=== PATIENT | female | born 1985 | race Caucasian/White ===

== ENCOUNTER 2018-07-29 01:07 | Emergency (ER) | payer MEDICAID, OTHER ==
[~2018-07-29] VITALS: Ht 165.1 cm; Wt 59.0 kg
--- NOTE | 2018-07-29 01:20 | NUR ---
Pt. BIB [facility] for acute alcohol intoxication, EMS called by friend who reports that pt. drinks like this often, identifies self but is babbling incoherently and difficult to understand - does not answer questions appropriately,
[2018-07-29] MEDS ORDERED: IV NORMAL SALINE 1000 ML BAG IV ONE ×2 (01:30→05:15)
--- NOTE | 2018-07-29 02:00 | NUR ---
Pt. states she needs to use restroom but has unstable gait - given bedside commode - urine specimen collected and sent to lab - urine clear
--- NOTE | 2018-07-29 02:19 | NUR ---
Phleb. tech. at bedside for blood draw - specimens collected and sent to lab,
[2018-07-29 02:20] LABS: *URINE HCG, QUAL NEGATIVE (NEGATIVE)
[2018-07-29 02:25] LABS: BASOPHILS # (AUTO) 0.1 K/uL (0.0-8.0); BASOPHILS % (AUTO) 1.4 % (0.0-2.0); EOSINOPHILS # (AUTO) 0.1 K/uL (0.0-0.7); EOSINOPHILS % (AUTO) 1.4 % (0.0-7.0); HEMATOCRIT 41.1 % (31.2-41.9); HEMOGLOBIN 13.8 g/dL (10.9-14.3); LYMPHOCYTES # (AUTO) 3.5 K/uL (20.0-40.0); LYMPHOCYTES % (AUTO) 49.8 % (20.5-51.5); MEAN CORPUSCULAR HEMOGLOBIN 33.5 uug (24.7-32.8); MEAN CORPUSCULAR HGB CONC 34 g/dL (32.3-35.6); MEAN CORPUSCULAR VOLUME 99.6 fL (75.5-95.3); MONOCYTES # (AUTO) 0.5 K/uL (2.0-10.0); MONOCYTES % (AUTO) 7.4 % (0.0-11.0); NEUTROPHILS # (AUTO) 2.8 K/uL (1.8-8.9); PLATELET COUNT (AUTO) 305 K/uL (179-408); RED BLOOD CELL COUNT(AUTO) 4.13 MIL/uL (3.63-4.92)
[2018-07-29] MEDS ORDERED: [UNRECOGNIZED DRUG - REMARK] (02:33)
--- NOTE | 2018-07-29 02:33 | NUR ---
Bf at bedside, reports pt. has been trying to detox from alcohol on her own, reports pt. has a hx of epilepsy but does not know the name of the medication she takes,
[2018-07-29 02:39] LABS: BILIRUBIN,DIRECT 0.1 mg/dL (0.0-0.2); BILIRUBIN,TOTAL 0.3 mg/dL (0.2-1.0); CREATININE 0.7 mg/dL (0.6-1.3); POTASSIUM 3.2 mmol/L (3.5-5.1); TOTAL PROTEIN, SERUM 7.6 g/dL (6.4-8.2)
--- NOTE | 2018-07-29 02:50 | NUR ---
Bedside rails padded for pt. safety, pt. used bed cardenas to void,
[2018-07-29 03:00] LABS: *AMPHETAMINE, URINE NEGATIVE (NEGATIVE); *BARBITURATE, URINE NEGATIVE (NEGATIVE); *CANNABINOID, URINE NEGATIVE (NEGATIVE); *COCCAINE, URINE NEGATIVE (NEGATIVE); *OPIATE, URINE NEGATIVE (NEGATIVE); *PHENCYCLIDINE SCREEN,URINE NEGATIVE (NEGATIVE)
[2018-07-29] MEDS ORDERED: THIAMINE HCL 200 MG/2 ML VIAL IV ONE (03:30)
[2018-07-29] MEDS ORDERED: THIAMINE HCL 200 MG/2 ML VIAL ONE (03:41)
[2018-07-29] MEDS ORDERED: LORAZEPAM 2 MG/1 ML VIAL ONE ×2 (03:41→05:09)
[2018-07-29] MEDS ORDERED: LORAZEPAM 2 MG/1 ML VIAL IV ONE ×2 (03:45→05:15)
--- NOTE | 2018-07-29 03:55 | NUR ---
Pt. attempting to pull out IV lines/VS monitoring lines - Called [facility] to request sitter for pt. safety - none available at this time, called security to request assistance watching the pt. - security dispatched,
[2018-07-29] MEDS ORDERED: POTASSIUM CHLORIDE 50 ML ONE ×2 (05:26→05:38)
[2018-07-29] MEDS: POTASSIUM CHLORIDE 50 ML IV SCH ×2 (05:33→06:28)
--- NOTE | 2018-07-29 05:34 | NUR ---
1st bag of KCl started and infusing
--- NOTE | 2018-07-29 06:28 | NUR ---
2nd bag KCl started and infusing
--- NOTE | 2018-07-29 06:42 | NUR ---
Pt. recieving fluids, placed in trendelenberg position, Dr. Lima notified of VS
--- NOTE | 2018-07-29 06:58 | NUR ---
Pt. much more coherent and asking for her bf Aden who said he would be back later this morning,
--- NOTE | 2018-07-29 07:10 | NUR ---
Recieved Pt in bed, w/ both eyes closed.NAD noted.
--- NOTE | 2018-07-29 07:26 | NUR ---
Report given to jaimee Lucas, all care endorsed,
--- NOTE | 2018-07-29 07:40 | NUR ---
2nd bag of KCL infusion ended at this time.
--- NOTE | 2018-07-29 07:51 | NUR ---
Pt brought back from CT scan.
--- NOTE | 2018-07-29 09:07 | NUR ---
Patient is resting comfortably in bed with eyes closed, NAD noted.
--- NOTE | 2018-07-29 09:59 | NUR ---
Pt ate breakfast w/ good appetite. Pt walked to the bathroom w/ steady gait.
--- NOTE | 2018-07-29 11:20 | NUR ---
Pt's best friend/boyfriend at the bedside, Dr Lima spoke to Pt and pt's friend.
--- NOTE | 2018-07-29 11:26 | NUR ---
Patient discharged to home in stable conditon. Written and verbal after care instructions given. Patient and pt's BF verbalize understanding of instructions. Pt left ER w/ steady gait and accompained by BF.
[2018-07-29 11:29] VITALS: BP 100/58
== END 2018-07-29 11:30 | disposition home or self-care (01) ==
LOC: ER 01:11 → EDBD 01:11 → ER 11:30
DX: F10.129 Alcohol abuse with intoxication, unspecified (principal); R00.0 Tachycardia, unspecified; E87.6 Hypokalemia; Y90.8 Blood alcohol level of 240 mg/100 ml or more
CPT/HCPCS: 36415; 70450; 72125; 80048; 80076; 80307; 84702; 84703; 85025; 93005; 96365; 96366; 96375; 96376; 99284; G0480; J2060 ×2; J3411; J3480 ×2; A4663; J7030

== ENCOUNTER 2019-01-15 17:16 | Emergency (ER) | payer OTHER ==
[~2019-01-15] VITALS: Ht 170.2 cm; Wt 65.8 kg
[~2019-01-15 17:16] MED LIST: [UNRECOGNIZED DRUG - REMARK]
[2019-01-15] MEDS ORDERED: LIDOCAINE VISCUS 2% 15 ML UDC ONE (18:09)
[2019-01-15] MEDS ORDERED: FAMOTIDINE. 20 MG/2 ML VIAL IV ONE (18:09)
[2019-01-15] MEDS ORDERED: MAG HYDROX/AL HYDROX/SIMETH 30 ML LIQUID UDC ONE (18:10)
[2019-01-15] MEDS: IV NORMAL SALINE 1000 ML BAG IV ONE (18:11)
[2019-01-15] MEDS: LIDOCAINE VISCUS 2% 15 ML UDC MM ONE (18:12)
[2019-01-15] MEDS: FAMOTIDINE. 20 MG/2 ML VIAL IV ONE (18:12)
[2019-01-15] MEDS: MAG HYDROX/AL HYDROX/SIMETH 30 ML LIQUID UDC PO ONE (18:12)
[2019-01-15 18:13] LABS: BASOPHILS % (AUTO) 0.3 % (0.0-2.0); EOSINOPHILS # (AUTO) 0.1 K/uL (0.0-0.7); EOSINOPHILS % (AUTO) 1.4 % (0.0-7.0); HEMATOCRIT 37.3 % (31.2-41.9); HEMOGLOBIN 12.8 g/dL (10.9-14.3); LYMPHOCYTES # (AUTO) 1.6 K/uL (20.0-40.0); LYMPHOCYTES % (AUTO) 41.8 % (20.5-51.5); MEAN CORPUSCULAR HEMOGLOBIN 34.1 uug (24.7-32.8); MEAN CORPUSCULAR HGB CONC 34 g/dL (32.3-35.6); MEAN CORPUSCULAR VOLUME 99.6 fL (75.5-95.3); MONOCYTES # (AUTO) 0.5 K/uL (2.0-10.0); MONOCYTES % (AUTO) 12.2 % (0.0-11.0); NEUTROPHILS # (AUTO) 1.7 K/uL (1.8-8.9); NEUTROPHILS % (AUTO) 44.3 % (38.5-71.5); PLATELET COUNT (AUTO) 209 K/uL (179-408); RED BLOOD CELL COUNT(AUTO) 3.74 MIL/uL (3.63-4.92); WHITE BLOOD COUNT (AUTO) 3.9 K/uL (3.8-11.8)
[2019-01-15 18:23] LABS: CREATININE 0.7 mg/dL (0.6-1.3); POTASSIUM 3.8 mmol/L (3.5-5.1)
[2019-01-15 18:28] LABS: BILIRUBIN,DIRECT 0.1 mg/dL (0.0-0.2); BILIRUBIN,TOTAL 0.4 mg/dL (0.2-1.0); TOTAL PROTEIN, SERUM 7.2 g/dL (6.4-8.2)
--- NOTE | 2019-01-15 18:48 | NUR ---
PT WAS D/C'd TO HOME AFTER DR HANDY EVALUATION. D/C INSTRUCTIONS GIVEN TO THE PT.
[2019-01-15 18:49] VITALS: BP 127/81
== END 2019-01-15 18:50 | disposition home or self-care (01) ==
LOC: ER 17:19
DX: R10.13 Epigastric pain (principal); R11.0 Nausea; E03.9 Hypothyroidism, unspecified; Z88.0 Allergy status to penicillin
CPT/HCPCS: 36415; 80048; 80076; 83690; 85025; 96374; 99283; J3490; A4663; J7030